=== PATIENT | female | born 1980 | race Two or more races ===

== ENCOUNTER 2019-07-08 09:50 | Emergency (ER) | payer MEDICAID, OTHER ==
[~2019-07-08] VITALS: Ht 175.3 cm; Wt 77.1 kg
[2019-07-08 11:33] VITALS: BP 107/45
== END 2019-07-08 11:39 | disposition home or self-care (01) ==
LOC: ER 09:50 → EDBD 09:50 → ER 11:39
DX: S16.1XXA Strain of muscle, fascia and tendon at neck level, initial encounter (principal); F17.210 Nicotine dependence, cigarettes, uncomplicated; V43.52XA Car driver injured in collision with other type car in traffic accident, initial encounter; Y93.89 Activity, other specified; Y92.488 Other paved roadways as the place of occurrence of the external cause; Y99.8 Other external cause status
CPT/HCPCS: 72040